=== PATIENT | male | born 1940 | race Caucasian/White ===

== ENCOUNTER 2017-06-04 15:10 | Inpatient (IN) | payer MEDICARE, MEDICAID ==
[2017-06-04] MEDS ORDERED: Rocuronium Bromide 50 MG/5 ML VIAL ONE (15:39)
[2017-06-04] MEDS ORDERED: EPINEPHrine 1 MG/10 ML Abboject SYRINGE ONE (16:03)
--- NOTE | 2017-06-04 16:16 | RAD ---
AP VIEW OF THE CHEST: 06/04/17 INDICATION: Dyspnea. COMPARISON: Prior exam dated 06/04/17 at 12:34 p.m. FINDINGS: Since the comparison examination, patient is intubated. The endotracheal tube tip is seen just below the level of the thoracic inlet in the expected position. There is mild cardiomegaly. There is worsen ing parenchymal opacities involving the lung but more prominent involving the right upper lobe and le ft lower lobe. There is worsening small left and tiny right pleural effusion. No pneumothorax is evid ent. AICD is unchanged. The ununited proximal left humerus fracture is similar to the prior exam. IMPRESSION: 1. Interval intubation. 2. Worsening bilateral parenchymal opacities suspicious for either edema or pneumonia. 3. Cardiomegaly with some pulmonary vascular congestion and small bilateral pleural effusions i s suspicious for component of CHF. 4. Continued followup is recommended. POS: [facility]
[2017-06-04] MEDS ORDERED: Azithromycin 500 MG VIAL ONE (16:27)
[2017-06-04 16:44] LABS: Actual Bicarbonate (HCO3a) 19.4 mEq/L (22-26); Base Excess (BEa) -6.2 mEq/L (0 (+/-) 2.5); CO2 Tension 38.2 mmHg (35.0-45.0); Calcium, Ionized 1.1 mmol/L (1.12-1.30); Hematocrit-ABG 27.7 % (42.0-52.0); Hemoglobin (Hb) 9.1 g/dL (14.0-18.0); O2 Tension (PaO2) 83.5 mmHg (80.0-100.0); pH, Arterial 7.32 (7.35-7.45)
[2017-06-04] MEDS ORDERED: Norepinephrine 8 MG/0.9% NS 250 ML ONE (16:44)
[2017-06-04 16:45] LABS: Analyzer IN Cardio ER; Puncture Site LR
[2017-06-04] MEDS ORDERED: Fentanyl 20 MCG/ML 250 ML IVPB SCH ×2 (16:55→20:24)
--- NOTE | 2017-06-04 17:00 | HP ---
DATE OF ADMISSION: 06/04/2017 PRIMARY CARE PHYSICIAN: Dr. Valencia at [facility]. CHIEF COMPLAINT: Unresponsiveness. HISTORY OF PRESENT ILLNESS: Patient is a 77-year-old male with multiple comorbidities, currently res iding at retirement, was brought into [facility] Emergency Room with unresponsiveness at [facility] along with increased congestion and shortness of breath since yesterday. His vital s igns at [place] showed temperature 100.2 rectally with respirations 24, pulse rate of 103, blood pre ssure 88/51 with 97% on facemask with O2 saturation of 97% on facemask. He received Levaquin along w ith DuoNebs and Lasix in the Emergency Room and was transferred to this facility for hospital admissi on. At this facility, his rectal temperature was 102.7 with blood pressure in 80s with worsening respirat ory distress requiring mechanical ventilation. He had out of hospital DNR that was revoked by the keshawn flores at the bedside per ER record. At this time, there is no family member. No information is avail able from the patient due to current cognitive status. PAST MEDICAL HISTORY: 1. Chronic systolic heart failure status post AICD. 2. Sick sinus syndrome. 3. Anxiety and depression. 4. Obstructive sleep apnea. 5. Peripheral vascular disease. 6. History of pulmonary embolism. 7. Restless leg syndrome. 8. History of atrial fibrillation. 9. Glaucoma. 10. Degenerative joint disease. 11. Chronic urinary retention status post suprapubic catheter placement. 12. Hypertension. 13. Gastroesophageal reflux disease. 14. Hyperlipidemia. 15. Hypothyroidism. PAST SURGICAL HISTORY: 1. Biventricular ICD. 2. Umbilical hernia repair. 3. Prostate surgery. 4. Cardiac catheterization. 5. Umbilical hernia repair. ALLERGIES: The patient is allergic to CEPHALEXIN, CODEINE, NORTRIPTYLINE, and FLOMAX. CODE STATUS: At the retirement is DNR. Surrogate decision maker to be verified with the family wh en they arrive. CURRENT MEDICATIONS: At the retirement; amiodarone 200 mg daily, aspirin 81 mg daily, chlordiazepo xide 25 mg at bedtime, Colace 100 mg b.i.d., levothyroxine 50 mcg daily, Remeron 30 mg at bedtime, om eprazole 40 mg daily, oxybutynin 5 mg three times daily, risperidone 1 mg b.i.d., Seroquel 50 mg at b edtime, timolol 0.5% eyedrops in both eyes daily, VESIcare 5 mg daily, Xanax 1 mg 3 times a day. He also takes several other p.r.n. medications. SOCIAL HISTORY: As discussed above, patient resides at [facility]. His baseline mentation is un known at this time. We will verify with family. The patient has a history of smoking. No alcohol o r drug use. FAMILY HISTORY: Cannot be obtained from the patient due to current cognitive status. REVIEW OF SYSTEMS: Cannot be obtained from the patient due to current cognitive status. PHYSICAL EXAMINATION: VITAL SIGNS: Temperature 102.7 with respirations 16, pulse 107, blood pressure 102/50. A central li ne has been placed in the right subclavian. GENERAL: A 77-year-old male, intubated on mechanical ventilation. HEENT: Head is atraumatic, normocephalic. Dry mucous membranes. No oral lesion. Trachea at midlin e. NECK: Supple, no neck stiffness. LUNGS: Showed coarse breath sounds bilaterally with rhonchi and scattered wheezing. There were biba silar rales. HEART: S1 and S2 present. Regular rate and rhythm, tachycardic. A 2/6 systolic murmur over the luz ral area. AICD noted. ABDOMEN: Soft. Bowel sounds present. EXTREMITIES: No edema or calf tenderness. NEUROLOGIC: Examination could not be done due to current cognitive status. PSYCHIATRIC: Examination could not be done due to current cognitive status. SKIN: Warm and dry. LABORATORY DATA AND X-RAY FINDINGS: 1. CBC showed WBC 12.4 with hemoglobin 12.4, platelet count of 372 with 78.8% neutrophils. 2. Troponin at [place] was 0.391. BNP 275. 3. Chemistries showed sodium 139, potassium 3.8, chloride 101, bicarbonate 28, BUN 25, creatinine 0. 81. 4. Chest x-ray by my review showed multifocal pneumonia bilaterally. 5. EKG by my review showed paced rhythm. IMPRESSION: 1. Acute hypoxic respiratory failure. 2. Multifocal pneumonia, suspected pneumococcal versus aspiration. 3. Sepsis with acute organ dysfunction secondary to pneumonia, rule out urinary tract infection and influenza. 4. Chronic systolic heart failure, questionable decompensated. 5. Hypertension. Patient is currently hypotensive and we will probably require pressors. 6. Gastroesophageal reflux disease. 7. Urinary retention status post suprapubic catheter. 8. Benign prostatic hypertrophy. 9. Anxiety and depression. 10. Hyperlipidemia. 11. Hypothyroidism. 12. History of tobacco abuse. 13. History of prostate cancer. 14. Sick sinus syndrome, status post pacemaker. 15. History of pulmonary embolism. 16. Glaucoma. 17. Restless leg syndrome. 18. History of atrial fibrillation. PLAN: The patient will be monitored in the Intensive Care Unit. Stat blood cultures and urine cultu res have been sent. Patient will be started on vancomycin and meropenem along with azithromycin. We will also add Tamiflu for possible influenza. We will start pressors if needed. Start him on stres s dose steroids. Urine culture. Resume other home medications probably tomorrow. We will discuss t he plan of care with the family when they arrive. CONDITION OF THE PATIENT: Critical.
[2017-06-04 17:20] LABS: Bilirubin Negative (Negative); Blood, Urine Moderate (Negative); Clarity CLOUDY (Clear); Glucose, Urine (Dipstick) Negative (Negative); Leukocyte Large (Negative); Nitrite Negative (Negative); Protein, Urine (Dipstick) Negative (Neg-Trace); Specific Gravity, Urine 1.013 (1.002-1.036); Urobilinogen 0.2 mg/dL (0.2-1.0); pH, Urine 6.5 (5.0-9.0)
[2017-06-04 17:24] LABS: Bacteria/HPF 4+ HPF (None Seen); Hyaline Casts/LPF 7-10 HYALINE CAST LPF (0-3 Hyaline); Pathc Cast-AUWi Flag 1.21 (0-2.49); Squamous Epithelial None Seen HPF (0-3); WBC/HPF 21-50 HPF (0-3)
--- NOTE | 2017-06-04 17:51 | RAD ---
PORTABLE SUPINE CHEST ONE VIEW: 06/04/17 HISTORY: 77-year-old male for post line placement with concern for congestive heart failure and pneumonia. Fol lowup. COMPARISON: 06/04/17. NG tube and endotracheal tube are in place in satisfactory location. Right subclavian catheter has be en placed without pneumothorax or other significant complication. There are bilateral patchy alveolar and interstitial parenchymal changes throughout both lungs worse on the right side. Evidence for nikki ateral pneumonia. IMPRESSION: Extensive bilateral stable pneumonia. NG tube, endotracheal tube and right subclavian catheters in sa tisfactory location without complication. POS: [facility]
[2017-06-04 18:10] LABS: Anion Gap 11 mmol/L (10-20); BUN (Urea Nitrogen) 19 mg/dL (8.4-25.7); CRP (Inflammatory) 17.82 mg/dL (= or < 0.5); Calc. Creatinine Clearance 0 mL/min (70-130); Calcium 6.9 mg/dL (7.8-10.44); Carbon Dioxide 17 mmol/L (23-31); Chloride 112 mmol/L (98-107); Estimated GFR-MDRD Greater than 90; Glucose 88 mg/dL (83-110); Magnesium 1.1 mg/dL (1.6-2.6); Sodium 137 mmol/L (136-145)
[2017-06-04 18:13] LABS: Phosphorus 1.7 mg/dL (2.3-4.7); Potassium 2.5 mmol/L (3.5-5.1)
[2017-06-04 18:21] LABS: CKMB 1.4 ng/mL (0-6.6)
[2017-06-04 18:24] LABS: Troponin I 0.466 ng/mL (< 0.028)
--- NOTE | 2017-06-04 18:27 | RAD ---
ABDOMEN ONE VIEW: 06/04/17 HISTORY: Post line placement. Followup congestive heart failure and pneumonia. There are extensive patchy parenchymal changes noted in both the right and left lungs as well as some increased density in the retrocardiac region, possibly a hiatal hernia versus some type of mass or m ore focal pneumonia. NG tube tip extends into the stomach. There is some gas in nondilated small nancy l and some gas and fecal material in the colon but no evidence for overt obstruction. IMPRESSION: NG tube in satisfactory location. Patchy bilateral pulmonary parenchymal changes including a somewhat more nodular density in the central retrocardiac region of uncertain etiology or significance. Destinee nued short term followup. No evidence for overt bowel obstruction, although there is some gas in nond ilated small bowel loops throughout the central abdomen. Continued short term followup. POS: [facility]
[2017-06-04] MEDS ORDERED: Potassium Chloride 40 MEQ in Sodium Chloride 0.9% 500 ML IVPB SCH (19:00)
[2017-06-04] MEDS ORDERED: Acetaminophen 650 MG Suppository PR PRN (19:58)
[2017-06-04] MEDS ORDERED: Azithromycin 500 MG in Sodium Chloride 0.9% 250 ML 250 ML IVPB SCH (19:58)
[2017-06-04] MEDS ORDERED: Oseltamivir 75 MG CAP PER TUBE SCH ×2 (19:58→21:00)
[2017-06-04] MEDS ORDERED: Meropenem 1 GM in Sodium Chloride 0.9% 100 ML IVPB SCH (19:58)
[2017-06-04] MEDS ORDERED: Acetaminophen 325 MG TAB PO PRN (19:58)
[2017-06-04] MEDS ORDERED: Sedation Protocol FS ONE (19:58)
[2017-06-04] MEDS ORDERED: Aspirin 325 MG TAB PER TUBE SCH (19:58)
[2017-06-04] MEDS ORDERED: CCU Electrolyte Replacement 1 EACH IVPB ONE (19:58)
[2017-06-04] MEDS ORDERED: Lacri-Lube Opth Oint 3.5 GM TUBE EA EYE PRN (19:58)
[2017-06-04] MEDS ORDERED: Potassium Phosphate 30 MMOL in Sodium Chloride 0.9% 500 ML IVPB SCH (19:58)
[2017-06-04] MEDS ORDERED: Magnesium Sulfate 4 GM in Sodium Chloride 0.9% 250 ML 250 ML IVPB SCH (19:58)
[2017-06-04] MEDS ORDERED: Potassium Chloride 40 MEQ in Sodium Chloride 0.9% 250 ML 250 ML IVPB PRN (20:05)
[2017-06-04] MEDS ORDERED: Magnesium Oxide 400 MG TAB PO PRN ×2 (20:05)
[2017-06-04] MEDS ORDERED: Potassium Chloride 20 MEQ TAB PO PRN (20:05)
[2017-06-04] MEDS ORDERED: Potassium Phosphate 9 MMOL in Sodium Chloride 0.9% 100 ML IVPB PRN (20:05)
[2017-06-04] MEDS ORDERED: Potassium Chloride 40 MEQ in Premix Bag 1 BAG IVPB PRN (20:05)
[2017-06-04] MEDS ORDERED: CCU ELECTROLYTE REPLACEMENT PROTOCOL FS PRN (20:05)
[2017-06-04] MEDS ORDERED: Potassium Phosphate 12 MMOL in Sodium Chloride 0.9% 250 ML 250 ML IV PRN (20:05)
[2017-06-04] MEDS ORDERED: Magnesium 2 GM/NS 0.9% 100 ML 2 GM in Premix Bag 1 BAG IVPB PRN (20:05)
[2017-06-04] MEDS ORDERED: Potassium Phosphate 15 MMOL in Sodium Chloride 0.9% 250 ML 250 ML IV PRN (20:05)
[2017-06-04] MEDS ORDERED: Propofol 1,000 MG/100 ML VIAL IV PRN (20:24)
[2017-06-04] MEDS ORDERED: Lorazepam 2 MG/ML VIAL SLOW IVP PRN (20:24)
[2017-06-04] MEDS ORDERED: DISCONTINUE PREVIOUS NARCOTIC PAIN MEDICATIONS AND BENZODIAZEPINES FS SCH (20:24)
[2017-06-04] MEDS ORDERED: Morphine 4 MG/ML VIAL SLOW IVP PRN (20:25)
[2017-06-04] MEDS ORDERED: Vancomycin HCl 1 GM in Premix Bag 1 BAG IVPB SCH (20:30)
[2017-06-04] MEDS ORDERED: Mirtazapine 15 MG TAB PER TUBE SCH (21:00)
[2017-06-04] MEDS ORDERED: Docusate 100 MG CAP PER TUBE SCH (21:00)
[2017-06-04] MEDS: Meropenem 1 GM, Admixture Fee 1 EACH in Sterile Water 20 ML IVPB SCH (23:37)
[2017-06-04] MEDS ORDERED: Docusate Sodium 100 MG/10 ML UDCUP PER TUBE SCH (23:45)
[2017-06-04] MEDS: Hydrocortisone Sod Succ/PF 100 mg/2 ml Vial IVP SCH (23:51)
[2017-06-04] MEDS: Heparin 5,000 UNITS/ML VIAL SC SCH (23:51)
[2017-06-04] MEDS: Famotidine/PF 20 mg/2ml Vial SLOW IVP SCH (23:54)
[2017-06-04] MEDS: D5 NS w/ 40 mEq KCl 1,000 ML IV SCH (23:56)
[2017-06-05] MEDS: Norepinephrine 8 MG/0.9% NS 250 ML IVPB PRN ×2 (00:03→14:55)
[2017-06-05 01:43] VITALS: BMI 20.2
--- NOTE | 2017-06-05 02:05 | CON ---
DATE OF CONSULTATION: 06/04/2017 A 77-year-old skilled nursing resident. He was a DO NOT RESUSCITATE patient prior to being evaluated an d told his reverse his code status and he subsequently has been intubated. He is unable to give a history. There is no family in the emergency department when I evaluated him. He presented febrile with respiratory distress after being found unresponsive at the skilled nursing. PAST MEDICAL HISTORY: 1. Remarkable for defibrillator placement for systolic heart failure. 2. History of sleep apnea. 3. Peripheral vascular disease. 4. History of pulmonary embolism. 5. History of atrial fibrillation. 6. Glaucoma 7. Osteoarthritis. 8. Hypertension. 9. History of suprapubic catheter placement. 10. Reflux disease. 11. Hypothyroidism. 12. History of a herniorrhaphy in the past. 13. History of prostate surgery. He is allergic to CEPHALOSPORINS, CODEINE, NORTRYPTLINE and FLOMAX. MEDICATIONS: Prior to admission he was on amiodarone, aspirin, chlordiazepoxide, Colace, Synthroid, Remeron, omeprazole, oxybutynin, risperidone, Seroquel, timolol, VESIcare. SOCIAL HISTORY: He is a nonsmoker, nondrinker since he lives in a skilled nursing. Old records have been reviewed. Additional past medical history of prostate cancer in 2014, which wa s prior to the placement of a suprapubic catheter. REVIEW OF SYSTEMS: Not obtainable as there is no family here to review systems with. PHYSICAL EXAMINATION: VITAL SIGNS: He is afebrile, heart rate in the 90s, respiratory rate in the teens per ventilation, o ximetry is 94-96, blood pressure 138/74. GENERAL: He is extremely cachectic. HEENT: His sclerae is anicteric. Extraocular movements cannot be assessed. He is orally intubated. When I evaluated him, the nurses were placing an orogastric tube. NECK: Supple. No palpable lymphadenopathy. LUNGS: Remarkable for coarse equal breath sounds. HEART: Regular rhythm. ABDOMEN: Soft. EXTREMITIES: Without asymmetry. His extremities were mottled. LABORATORY DATA: His white count was 12.4, hemoglobin 12.4, platelets 372. Sodium 137, potassium 2. 5, chloride 112, bicarb 17, BUN 19, creatinine 0.56, phosphorus 1.7, magnesium is 1.1, albumin is 3.2 . Chest radiograph was reviewed by me, shows findings suggestive of cardiogenic pulmonary edema, defibr illator seen in place. IMPRESSION: 1. Congestive heart failure with respiratory failure. 2. History of defibrillator placement for systolic cardiomyopathy. 3. History of a suprapubic catheter. Any pathogens isolated from his urine will be colonizers. His prognosis is extremely poor because of his protein calorie malnutrition. His electrolytes should be replenished to be mechanically ventilated. We will repeat radiographs while he is in the ICU. M onitor his intake and output. Gentle diuresis as his blood pressure tolerates, it is unlikely that h e will survive to become even reasonably functional after several days of bed rest still, however, th is hospitalization and he has premorbid cachexia. Critical care time 40 minutes.
[2017-06-05] MEDS ORDERED: Sodium Chloride 0.9% 2,000 ML IV SCH (03:15)
[2017-06-05 05:09] LABS: Lactic Acid 2.1 mmol/L (0.5-2.2)
[2017-06-05 05:22] LABS: ALT (SGPT) 11 U/L (8-55); AST (SGOT) 24 U/L (5-34); Albumin 2.1 g/dL (3.4-4.8); Alkaline Phosphatase 37 U/L (40-150); Anion Gap 9 mmol/L (10-20); BUN (Urea Nitrogen) 15 mg/dL (8.4-25.7); Bilirubin, Total 0.3 mg/dL (0.2-1.2); Calc. Creatinine Clearance 104 mL/min (70-130); Calcium 7.3 mg/dL (7.8-10.44); Carbon Dioxide 19 mmol/L (23-31); Chloride 118 mmol/L (98-107); Estimated GFR-MDRD Greater than 90; Globulin 2.5 g/dL (2.4-3.5); Glucose 142 mg/dL (83-110); Magnesium 2.2 mg/dL (1.6-2.6); Phosphorus 2.5 mg/dL (2.3-4.7); Potassium 3.6 mmol/L (3.5-5.1); Protein, Total 4.6 g/dL (5.8-8.1); Sodium 142 mmol/L (136-145)
[2017-06-05 05:24] LABS: Mean Corpuscular HGB CONC 31.4 g/dL (32.0-36.0); Mean Corpuscular Hemoglobin 30.8 pg (27.0-31.0); Mean Corpuscular Volume 97.8 fl (80.0-94.0); Mean Platelet Volume 6.1 fL (7.4-10.4); Platelet Count 308 thou/uL (130-400); RBC Distribution Width 13.7 % (11.5-14.5); Red Blood Cell (RBC) Count 3.24 mill/uL (4.70-6.10); White Blood Cell (WBC) Count 7.6 thou/uL (4.8-10.8)
[2017-06-05] MEDS: D5 NS w/ 40 mEq KCl 1,000 ML IV SCH (05:56)
[2017-06-05] MEDS: Hydrocortisone Sod Succ/PF 100 mg/2 ml Vial IVP SCH ×2 (05:57→13:55)
[2017-06-05] MEDS: Meropenem 1 GM, Admixture Fee 1 EACH in Sterile Water 20 ML IVPB SCH ×2 (05:58→14:04)
[2017-06-05] MEDS: Vancomycin HCl 1 GM in Premix Bag 1 BAG IVPB SCH ×2 (05:58→14:04)
[2017-06-05 05:59] LABS: Band 37 % (5-11); Lymphocytes 11 % (21-51); MDiff Complete? YES; Metamyelocyte 2 % (0-0); Neutrophil 50 % (42-75); PLT Morphology Comment Appears Adequate
[2017-06-05] MEDS ORDERED: Levothyroxine Sodium 50 MCG TAB PER TUBE SCH (06:00)
[2017-06-05 07:12] LABS: Actual Bicarbonate (HCO3a) 15.9 mEq/L (22-26); Base Excess (BEa) -8.8 mEq/L (0 (+/-) 2.5); CO2 Tension 29.9 mmHg (35.0-45.0); Calcium, Ionized 1.1 mmol/L (1.12-1.30); Hematocrit-ABG 28.3 % (42.0-52.0); Hemoglobin (Hb) 9.2 g/dL (14.0-18.0); O2 Tension (PaO2) 79.3 mmHg (80.0-100.0); pH, Arterial 7.34 (7.35-7.45)
[2017-06-05 08:00] LABS: ALV-art Gradient 312.325 (0-20); Puncture Site RBA
[2017-06-05] MEDS: Famotidine/PF 20 mg/2ml Vial SLOW IVP SCH (08:59)
[2017-06-05] MEDS ORDERED: Timolol 0.25% Ophth Soln 5 ml Bottle EA EYE SCH (09:00)
[2017-06-05] MEDS ORDERED: risperiDONE 1 MG TAB PER TUBE SCH (09:00)
[2017-06-05] MEDS ORDERED: Docusate Sodium 100 MG/10 ML UDCUP PER TUBE SCH (09:00)
[2017-06-05] MEDS ORDERED: Amiodarone 200 MG TAB PER TUBE SCH (09:00)
[2017-06-05] MEDS ORDERED: FLU VACC TS2017-18 (>65YR) 0.5 ML SYRINGE IM ONE (09:00)
[2017-06-05] MEDS: Heparin 5,000 UNITS/ML VIAL SC SCH (09:03)
[2017-06-05] MEDS ORDERED: D5 NS w/ 40 mEq KCl 1,000 ML IV SCH (09:17)
--- NOTE | 2017-06-05 09:46 | RAD ---
AP VIEW CHEST: Date: 06/05/17 HISTORY: Ventilator dependent patient. FINDINGS/IMPRESSION: Comparison made to previous exam from 06/04/17. AP view of chest demonstrates nasogastric tube in place. Endotracheal tube is in good position. There is a right subclavian central line, distal tip overlying the SVC. Dual lead intracardiac defibrillat or is seen. Cardiomegaly is noted. Pulmonary vascular congestion is present. Diffuse air space opacit ies concerning for bilateral pneumonias present. Radiographic appearance of the chest is stable and u nchanged since the previous exam. No other significant interval change is seen. POS: [facility]
[2017-06-05 14:23] VITALS: BP 102/48
[2017-06-05] MEDS ORDERED: Fentanyl 100 MCG/2 ML VIAL SLOW IVP PRN (16:54)
[2017-06-05] MEDS ORDERED: Lorazepam 2 MG/ML VIAL SLOW IVP PRN (16:56)
[2017-06-05] MEDS ORDERED: Azithromycin 500 MG in Sodium Chloride 0.9% 250 ML 250 ML IVPB SCH (18:00)
--- NOTE | 2017-06-05 20:28 | PRG ---
DATE OF SERVICE: 06/05/2017 SUBJECTIVE: Mr. Rockwell remains mechanically ventilated overnight. He has been hemodynamically stab le. OBJECTIVE: VITAL SIGNS: His heart rates just over 100. He is in sinus rhythm, respiratory rates in the 20s, ox imetry is in the 90s, mechanically ventilated. LUNGS: Coarse equal breath sounds. HEART: Regular rhythm. ABDOMEN: Soft. Intake and output is positive 4544. LABORATORY DATA: White count 7.6, hemoglobin 10, platelets 308. Sodium 142, potassium 3.6, chloride 118, bicarb 19, BUN 15, creatinine 0.57. A pH 7.34, pCO2 of 29, pO2 of 79. Chest radiograph shows bilateral alveolar infiltrates. I reviewed the radiographs when it has the appearance of bilateral pneumonia in my opinion. Radiogra ph is unchanged. IMPRESSION: 1. Respiratory failure secondary to pneumonia. 2. Advanced dementia with a bedridden state. 3. Extreme cachexia. 4. Preexisting DO NOT RESUSCITATE status. I met with the and answered all of her questions. S he said that the reason he ended up being intubated, because it was presented to her, " Do you want t o ask to do everything we can." She did not realize that this man's everything they decided that the y wanted to go and to do. I had a long discussion with her that lasted approximately 20 minutes and discussing options. I have discussed his pre-existing condition. She wanted to call her son and have family come in, son does not arrive and did not want to sit with him, but did want him extubated. He subsequently has been extubated. He is stable for now. I have explained to the family the last few days. If he is uncomfortable, giving medications for comfort. If he survives at night, we should consider transfer to inpatient hospice. Family is now comfortable, the decision has been made. Critical care time 40 minutes in dependent of the time spent with the family, which is probably total today of at least 45 minutes.
--- NOTE | 2017-06-05 22:37 | PDOC.PN ---
- Subjective Encounter Start Date: 06/05/17 Encounter Start Time: 16:30 -: non-verbal Patient seen and examined. Family at bedside - Objective Resuscitation Status: Resuscitation Status DNR:Do Not Resuscitate MAR Reviewed: Yes Vital Signs & Weight: Vital Signs (12 hours) Temp Pulse Resp BP Pulse Ox 06/05/17 20:00 98 F 108 H 20 98 06/05/17 16:55 104 H 30 H 92 L 06/05/17 16:00 98.6 F 25 H 92 L 06/05/17 15:40 89 25 H 97 06/05/17 14:20 102 H 102/48 L 06/05/17 12:00 97.8 F 26 H Weight Admit Weight 149 lb Weight 149 lb 0.52 oz Most Recent Monitor Data Heart Rate from ECG 100 NIBP 68/40 NIBP BP-Mean 52 Respiration from ECG 22 SpO2 92 I&O: 06/04/17 06/05/17 06/06/17 06:59 06:59 06:59 Intake Total 5039 1134 Output Total 495 870 Balance 4544 264 Result Diagrams: 06/05/17 04:43 06/05/17 04:43 Additional Labs: Accuchecks 06/05/17 06/05/17 14:44 00:01 POC Glucose 160 H 80 Radiology Reviewed by me: Yes (CXR - same) EKG Reviewed by me: Yes (Tele paced) Phys Exam - Physical Examination Pt on mech Vent Respiratory: no wheezing Coarse BS B/L, Bibasilar rlaes Cardiovascular: RRR, no rub no heaves/pulsations Gastrointestinal: soft, non-tender, no distention, positive bowel sounds Neuro/Psych - Cannot assess due to sedation Dx/Plan - Plan plan discussed w/ family, DVT proph w/SCDs IMPRESSION: 1. Acute hypoxic respiratory failure. 2. Multifocal pneumonia, suspected pneumococcal versus aspiration. 3. Sepsis with acute organ dysfunction secondary to pneumonia, rule out urinary tract infection and influenza. 4. Chronic systolic heart failure, questionable decompensated. 5. Hypertension. Patient is currently hypotensive and we will probably require pressors. 6. Gastroesophageal reflux disease. 7. Urinary retention status post suprapubic catheter. 8. Benign prostatic hypertrophy. 9. Anxiety and depression. 10. Hyperlipidemia. 11. Hypothyroidism. 12. History of tobacco abuse. 13. History of prostate cancer. 14. Sick sinus syndrome, status post pacemaker. 15. History of pulmonary embolism. 16. Glaucoma. 17. Restless leg syndrome. 18. History of atrial fibrillation. PLAN: * Dr Bowens discussed extensively with family earlier - Plan is to terminally extubate/Comfort care - Family agrees and stated understanding * DC All meds except Fentanyl/Ativan Review of Systems - Review of Systems Other: Cannot obtain due to sedation - Medications/Allergies Allergies/Adverse Reactions: Allergies Allergy/AdvReac Type Severity Reaction Status Date / Time Cephalosporins Allergy Verified 06/05/17 01:39 codeine Allergy Verified 06/05/17 01:39 nortriptyline Allergy Verified 06/05/17 01:39 tamsulosin [From Flomax] Allergy Verified 06/05/17 01:39 Medications: Current Medications Fentanyl (Sublimaze) 25 mcg SLOW IVP Q15MIN PRN PRN Reason: Pain Lorazepam (Ativan) 1 mg SLOW IVP Q30MIN PRN PRN Reason: Anxiety/Agitation
[2017-06-06 00:02] VITALS: TEMP 97.6
--- NOTE | 2017-06-06 10:08 | DS ---
DATE OF EXPIRATION: 06/06/2017 at 04:44 a.m. BRIEF HOSPITAL COURSE: Patient was a 77-year-old male with chronic systolic heart failure, status po st AICD; peripheral vascular disease; atrial fibrillation; urinary retention, status post suprapubic catheter placement; hypertension; hyperlipidemia; and sick sinus syndrome; was brought in from [facility] with unresponsiveness. His temperature in the emergency room was 102.7 with the blood press ure in 80s. Due to worsening respiratory distress, he was placed on mechanical ventilation. Please note that patient had out of hospital DNR that was revoked by the family at the bedside. Please refe r to the history and physical for further details. The patient was admitted to the Intensive Care Unit with a diagnosis of respiratory failure secondary to multifocal pneumonia and sepsis. He remained on mechanical ventilation overnight. After extensi ve discussion with the family by Dr. Bowens, the family decided on terminally extubating the patient, which was done yesterday evening. Patient this morning at 4:44 a.m. FINAL DIAGNOSES: 1. Acute hypoxic respiratory failure, secondary to multifocal pneumonia. 2. Sepsis with acute organ dysfunction. 3. Acute organ dysfunction, secondary to pneumonia and urinary tract infection. 4. Acute on chronic systolic heart failure. 5. Hypotension, secondary to sepsis. 6. History of hypertension. 7. Gastroesophageal reflux disease. 8. Chronic urinary retention, status post suprapubic catheter placement. 9. Benign prostatic hypertrophy. 10. Anxiety, depression 11. Hyperlipidemia. 12. History of tobacco abuse. 13. History of prostate cancer. 14. Sick sinus syndrome, status post pacemaker. 15. History of automatic implantable cardioverter-defibrillator placement. 16. Glaucoma. 17. Restless legs syndrome. 18. History of atrial fibrillation. 19. Benign prostatic hypertrophy. 20. Chronic anemia. 21. Hypokalemia. 22. Hypophosphatemia. 23. Hypomagnesemia. 24. Elevated troponin, secondary to demand ischemia. 25. Elevated inflammatory markers. 26. Moderate protein-calorie malnutrition. 27. Dehydration on admission. Plan of care was discussed with the family in detail. They stated understanding.
--- NOTE | 2017-06-15 14:41 | PQF ---
GEORGE OBRIEN MALIK MD [id number] CLINICAL DOCUMENTATION CLARIFICATION FORM: POST DISCHARGE DATE: 06/14/17 ATTN: Dr Love Please exercise your independent, professional judgment in responding to the clarification form. Clinical indicators are provided on the bottom of this form for your review Please document the cause of Sepsis. Please check appropriate box(s): [ ] Sepsis due to: (Pna, UTI, gangrenous gall bladder, etc.) Due to: [ ] Device (please specify) [ ] Implant [ ] Graft [ ] Infusion [ ] SIRS due to non-infectious process (please specify etiology) [ ] with organ dysfunction [ ] without organ dysfunction [ x] Severe sepsis with acute organ dysfunction of: respiratory failure____ (Examples: respiratory failure, encephalopathy, acute kidney failure, other) [ ] Localized infection without sepsis [ ] Other diagnosis [ ] Unable to determine In addition, please specify: Present on Admission (POA): [ ] Yes [ ] No [ ] Unable to determine For continuity of documentation, please document condition throughout progress notes and discharge summary. Thank You. CLINICAL INDICATORS - SIGNS / SYMPTOMS / LABS Presence of Suprapubic Catheter UTI Fever or hypothermia (<96.8 F/36 C or > 100.4 F/38C) Respiratory rate >22/min, Hypoxemia, SBP <100mmHg Metabolic acidosis Lactic Acid >2mmol/L, Increase BUN/Smooth Stucco Resurfacer, decrease GFR, coag abnormalities, thrombocytopenia-plts <100k Oliguria Shock-hypotension resistant to IV fluid boluses WBC count (>12,000/mm^4 or <4000/mm^3 or 10% neuts, 10% bands) Hyperglycemia in absence of diabetes mellitus Positive blood cultures RISK FACTORS Pneumonia, UTI, Suprapubic Catheter Immunosuppression Advancing Age TREATMENTS: Initiation Sepsis Protocol ICU Daily CBC Blood/sputum/wound cultures ID Consult IV antibiotics - broad spectrum IV Fluids Vasopressors, meds (This form is maintained as a part of the permanent medical record) 2014 [employer] All Rights Reserved [email or web address] [email or web address] [phone] [email or web address]
== END 2017-06-06 04:44 | disposition expired | DRG 871 ==
LOC: ERS 15:10 → CCU 16:07
PROVIDERS: ADMIT Internal Medicine; ATTEND Internal Medicine
PROC: 02HV33Z Insertion of Infusion Device into Superior Vena Cava, Percutaneous Approach (ICD-10-PCS; principal; 2017-06-04)
PROC: 5A1945Z Respiratory Ventilation, 24-96 Consecutive Hours (ICD-10-PCS; 2017-06-04)
PROC: 0BH17EZ Insertion of Endotracheal Airway into Trachea, Via Natural or Artificial Opening (ICD-10-PCS; 2017-06-04)
DX: A41.89 Other specified sepsis (principal); J96.01 Acute respiratory failure with hypoxia; I50.23 Acute on chronic systolic (congestive) heart failure; L89.152 Pressure ulcer of sacral region, stage 2; J18.9 Pneumonia, unspecified organism; E44.0 Moderate protein-calorie malnutrition; R64 Cachexia; I24.8 Other forms of acute ischemic heart disease; I11.0 Hypertensive heart disease with heart failure; N39.0 Urinary tract infection, site not specified; E83.39 Other disorders of phosphorus metabolism; I48.2 Chronic atrial fibrillation; E83.42 Hypomagnesemia; G25.81 Restless legs syndrome; E78.5 Hyperlipidemia, unspecified; E03.9 Hypothyroidism, unspecified; R65.20 Severe sepsis without septic shock; F41.9 Anxiety disorder, unspecified; F32.9 Major depressive disorder, single episode, unspecified; G47.33 Obstructive sleep apnea (adult) (pediatric); I73.9 Peripheral vascular disease, unspecified; Z86.711 Personal history of pulmonary embolism; H40.9 Unspecified glaucoma; M19.90 Unspecified osteoarthritis, unspecified site; K21.9 Gastro-esophageal reflux disease without esophagitis; Z88.5 Allergy status to narcotic agent; Z88.8 Allergy status to other drugs, medicaments and biological substances; Z66 Do not resuscitate; Z79.82 Long term (current) use of aspirin; Z96.0 Presence of urogenital implants; N40.1 Benign prostatic hyperplasia with lower urinary tract symptoms; R33.8 Other retention of urine; Z85.46 Personal history of malignant neoplasm of prostate; Z74.01 Bed confinement status; Z68.20 Body mass index [BMI] 20.0-20.9, adult; Z95.810 Presence of automatic (implantable) cardiac defibrillator; E87.6 Hypokalemia; E86.0 Dehydration; I25.10 Atherosclerotic heart disease of native coronary artery without angina pectoris; J43.9 Emphysema, unspecified; Z87.891 Personal history of nicotine dependence
CPT/HCPCS: 31500; 36415; 36416; 36556; 71010; 74000; 80053; 81015; 82533; 82805; 83605; 83735; 84100; 85007; 85027; 86140; 87077; 87086; 87186; 94003; 94640; 96365; 96366; 96368; 96375; A4216; J0171; J0456; J1644; J1720; J2185; J3010; J3370; J3475; J3480; J7050; J7620; S0028